=== PATIENT | male | born 2000 | race Hispanic/Latino ===

== ENCOUNTER 2022-06-27 19:29 | Emergency (ER) | payer BC, SELFPAY | END 2022-06-27 21:19 | disposition home or self-care (01) | LOC: CSHERS 19:29 | DX: S93.402A Sprain of unspecified ligament of left ankle, initial encounter (principal); X50.1XXA Overexertion from prolonged static or awkward postures, initial encounter ==

== ENCOUNTER 2022-08-16 12:45 | Emergency (ER) | payer SELFPAY ==
[2022-08-16 13:56] LABS: SARS-CoV-2 NAA Rapid Test Not Detected (NotDetected)
[2022-08-16] MEDS ORDERED: Cyclobenzaprine 10 MG TAB ONE (14:13)
[2022-08-16] MEDS ORDERED: Ketorolac Tromethamine 30 MG/ML VIAL ONE (14:13)
== END 2022-08-16 14:17 | disposition home or self-care (01) ==
LOC: CSHERS 12:45
DX: B34.9 Viral infection, unspecified (principal); L02.01 Cutaneous abscess of face; R05.9 Cough, unspecified
CPT/HCPCS: 96372; 99283; J1885